=== PATIENT | female | born 1950 | race Caucasian/White ===

== ENCOUNTER 2020-09-30 08:47 | Emergency (ER) | payer OTHER ==
[~2020-09-30] VITALS: Ht 160 cm; Wt 54.4 kg
[2020-09-30 09:45] LABS: BASOPHILS % 0.2 % (0.0-1.0); EOSINOPHILS % 0.1 % (0.0-6.0); HEMATOCRIT 28.1 % (34.2-44.1); HEMOGLOBIN 9.4 g/dL (12.0-16.0); LYMPHOCYTES # (AUTO) 0.3 (1.0-3.2); LYMPHOCYTES % 3.4 % (18.0-39.1); MEAN CORPUSCULAR HEMOGLOBIN 30.8 pg (28-32); MEAN CORPUSCULAR HGB CONC 33.5 g/dL (31-35); MEAN CORPUSCULAR VOLUME 92.1 fL (81-99); MONOCYTES % 10.3 % (4.4-11.3); NEUTROPHILS # (AUTO) 8.5 (2.1-6.9); NEUTROPHILS % 85.3 % (38.7-80.0); PLATELET COUNT 265 x10e3/uL (140-360); RED BLOOD COUNT 3.05 x10e6/uL (3.6-5.1); RED CELL DISTRIBUTION WIDTH 13.5 % (11.7-14.4)
[2020-09-30 10:08] LABS: ALBUMIN 3.3 g/dL (3.5-5.0); ANION GAP 16.2 mmol/L (8-16); CALCIUM 8.4 mg/dL (8.4-10.2); CREATININE, SERUM 1.45 mg/dL (0.57-1.11); POTASSIUM 3.2 mmol/L (3.5-5.1)
[2020-09-30] MEDS ORDERED: SODIUM CHLORIDE 0.9% 1000ML 1,000 ML IV SCH (10:30)
[2020-09-30] MEDS ORDERED: IOPAMIDOL 370 MG/ML 200 ML INFUS..BTL INJ ONE (10:35)
[2020-09-30] MEDS ORDERED: SODIUM CHLORIDE 0.9% 50ML 50 ML ONE (10:35)
[2020-09-30] MEDS ORDERED: CEFTRIAXONE SOD 1 GM/50 ML BAG IV ONE (12:00)
[2020-09-30] MEDS ORDERED: AUGMENTIN 875-1 EACH PO (12:12)
[2020-09-30] MEDS ORDERED: DOXYCYCLINE HY100 MG PO (12:12)
[2020-09-30] MEDS ORDERED: CEFTRIAXONE SOD 1 GM in SODIUM CHLORIDE 0.9% 50ML 50 ML IV ONE (12:15)
[2020-09-30 12:51] VITALS: BP 101/52
== END 2020-09-30 12:40 | disposition home or self-care (01) ==
LOC: EDSEX 08:47 → ER 09:08
DX: R06.02 Shortness of breath (principal); R05 Cough; J18.9 Pneumonia, unspecified organism; R11.0 Nausea; R73.9 Hyperglycemia, unspecified; R94.31 Abnormal electrocardiogram [ECG] [EKG]; E78.5 Hyperlipidemia, unspecified; J44.9 Chronic obstructive pulmonary disease, unspecified; Z20.822 Contact with and (suspected) exposure to COVID-19; Z95.1 Presence of aortocoronary bypass graft; Z99.81 Dependence on supplemental oxygen; F17.210 Nicotine dependence, cigarettes, uncomplicated
CPT/HCPCS: 36415; 71045; 71260; 80053; 83880; 84484; 85025; 85379; 93005; 99284; J0696; J7030; Q9967; U0002

== ENCOUNTER 2020-11-21 17:23 | Inpatient (IN) | payer MEDICARE, OTHER ==
[~2020-11-21] VITALS: Ht 160 cm; Wt 58.5 kg
[~2020-11-21 17:23] MED LIST: AUGMENTIN 875-1 EACH PO; DOXYCYCLINE HY100 MG PO
[2020-11-21 18:18] LABS: BASOPHILS % 0.5 % (0.0-1.0); EOSINOPHILS # (AUTO) 0.1 (0.0-0.4); EOSINOPHILS % 1.2 % (0.0-6.0); HEMATOCRIT 24.6 % (34.2-44.1); HEMOGLOBIN 7.8 g/dL (12.0-16.0); LYMPHOCYTES # (AUTO) 0.6 (1.0-3.2); LYMPHOCYTES % 9.5 % (18.0-39.1); MEAN CORPUSCULAR HEMOGLOBIN 27.9 pg (28-32); MEAN CORPUSCULAR HGB CONC 31.7 g/dL (31-35); MEAN CORPUSCULAR VOLUME 87.9 fL (81-99); MONOCYTES # (AUTO) 0.7 (0.2-0.8); MONOCYTES % 10.1 % (4.4-11.3); NEUTROPHILS # (AUTO) 5.2 (2.1-6.9); NEUTROPHILS % 78.2 % (38.7-80.0); PLATELET COUNT 371 x10e3/uL (140-360); RED CELL DISTRIBUTION WIDTH 16.4 % (11.7-14.4)
[2020-11-21 18:29] LABS: CLARITY,URINE CLEAR (CLEAR); COLOR,URINE YELLOW (YELLOW); LEUKOCYTE ESTERASE ,URINE NEGATIVE (NEGATIVE); NITRITE,URINE NEGATIVE (NEGATIVE)
[2020-11-21 18:30] LABS: BACTERIA,URINE FEW /HPF; EPITHELIAL CELLS,URINE FEW /LPF; KETONES,URINE NEGATIVE (NEGATIVE); PROTEIN,URINE DIPSTICK NEGATIVE (NEGATIVE); RBC,URINE 0-5 /HPF (0-5); URINE UROBILINOGEN 0.2 mg/dL (0.2 - 1); WBC,URINE (MAN) 0-5 /HPF (0-5)
[2020-11-21 18:37] LABS: INR 0.86; PROTHROMBIN TIME 12.3 seconds (11.9-14.5)
[2020-11-21 18:38] LABS: PARTIAL THROMBOPLASTIN TIME 29.1 seconds (23.8-35.5)
[2020-11-21 18:48] LABS: ALBUMIN 3.7 g/dL (3.5-5.0); ALBUMIN/GLOBULIN RATIO 1.1 (0.8-2.0); ANION GAP 16.3 mmol/L (8-16); CALCIUM 10.1 mg/dL (8.4-10.2); CREATININE, SERUM 1.45 mg/dL (0.57-1.11); POTASSIUM 3.3 mmol/L (3.5-5.1)
[2020-11-21 18:55] LABS: CREATINE KINASE MB 2.3 ng/mL (0-5.0)
[2020-11-21] MEDS: MORPHINE SULFATE INJ 4 MG/ML INJ 1ML IV PRN (23:00)
[2020-11-21] MEDS: ONDANSETRON HCL INJ 2MG/ML 2ML 2 MG/ML VIAL IV PRN (23:00)
[2020-11-22 03:12] LABS: FERRITIN 23.6 ng/mL (4.63-204.00)
[2020-11-22 05:34] LABS: BASOPHILS % 0.7 % (0.0-1.0); EOSINOPHILS # (AUTO) 0.1 (0.0-0.4); EOSINOPHILS % 3.2 % (0.0-6.0); LYMPHOCYTES # (AUTO) 0.9 (1.0-3.2); MEAN CORPUSCULAR HEMOGLOBIN 27.7 pg (28-32); MEAN CORPUSCULAR HGB CONC 31.4 g/dL (31-35); MEAN CORPUSCULAR VOLUME 88.4 fL (81-99); MONOCYTES # (AUTO) 0.5 (0.2-0.8); MONOCYTES % 11.2 % (4.4-11.3); NEUTROPHILS # (AUTO) 2.8 (2.1-6.9); NEUTROPHILS % 64.7 % (38.7-80.0); PLATELET COUNT 311 x10e3/uL (140-360); RED BLOOD COUNT 2.49 x10e6/uL (3.6-5.1); RED CELL DISTRIBUTION WIDTH 16.4 % (11.7-14.4)
[2020-11-22 05:42] LABS: HEMOGLOBIN 6.9 g/dL (12.0-16.0)
[2020-11-22] MEDS: ONDANSETRON HCL INJ 2MG/ML 2ML 2 MG/ML VIAL IV PRN ×4 (05:45→20:53)
[2020-11-22] MEDS: MORPHINE SULFATE INJ 4 MG/ML INJ 1ML IV PRN ×4 (05:45→20:53)
[2020-11-22 05:58] LABS: ALBUMIN 3.2 g/dL (3.5-5.0); ALBUMIN/GLOBULIN RATIO 1.2 (0.8-2.0); ANION GAP 14.2 mmol/L (8-16); CALCIUM 9.7 mg/dL (8.4-10.2); CREATININE, SERUM 1.28 mg/dL (0.57-1.11); POTASSIUM 3.2 mmol/L (3.5-5.1)
[2020-11-22] MEDS ORDERED: SODIUM CHLORIDE 0.9% 250ML 250 ML IV ONE (06:30)
[2020-11-22] MEDS: ALBUTEROL/IPRATROPIUM 3 ML NEB NEB SCH ×5 (07:10→23:00)
[2020-11-22 07:30] VITALS: BP 92/51
[2020-11-22 07:51] VITALS: BP 92/57
[2020-11-22] MEDS ORDERED: METOPROLOL TART50 MG PO (08:22)
[2020-11-22] MEDS ORDERED: LEVOTHYROXINE88 MCG PO (08:22)
[2020-11-22] MEDS ORDERED: NITROGLYCERIN0.4 MG (08:22)
[2020-11-22] MEDS ORDERED: FUROSEMIDE20 MG PO (08:22)
[2020-11-22] MEDS ORDERED: PROAIR RESPICL90 MCG INH (08:22)
[2020-11-22] MEDS ORDERED: TRAZODONE HCL50 MG PO (08:22)
[2020-11-22] MEDS ORDERED: VALSARTAN160 MG PO (08:22)
[2020-11-22] MEDS ORDERED: ALBUTEROL2.5 MG/3 M INH (08:22)
[2020-11-22] MEDS ORDERED: PANTOPRAZOLE SO40 MG PO (08:22)
[2020-11-22] MEDS ORDERED: CILOSTAZOL50 MG PO (08:22)
[2020-11-22] MEDS ORDERED: TRELEGY ELLIPT1 EACH INH (08:22)
[2020-11-22] MEDS ORDERED: ASPIRIN81 MG PO (08:22)
[2020-11-22] MEDS ORDERED: CLOPIDOGREL75 MG PO (08:22)
[2020-11-22] MEDS ORDERED: SIMVASTATIN40 MG PO (08:22)
[2020-11-22] MEDS ORDERED: AMLODIPINE BES2.5 MG PO (08:22)
[2020-11-22] MEDS ORDERED: albu (08:22)
[2020-11-22] MEDS ORDERED: CEFDINIR300 MG PO (08:23)
[2020-11-22] MEDS ORDERED: SODIUM CHLORIDE 0.9% 250ML 250 ML ONE ×2 (11:32→18:12)
[2020-11-22 11:57] VITALS: BP 104/53
[2020-11-22] MEDS ORDERED: CYANOCOBALAMIN INJ 1,000 MCG/ML VIAL IM ONE (12:00)
[2020-11-22] MEDS: IRON SUCROSE 100 MG in SODIUM CHLORIDE 0.9% 100 ML 100 ML IV SCH (14:49)
[2020-11-22] MEDS ORDERED: TRAZODONE HCL 50 MG TAB PO PRN (15:45)
[2020-11-22 16:00] VITALS: BP 116/66
[2020-11-22] MEDS ORDERED: POTASSIUM CHLORIDE 10MEQ EA PO ONE (16:30)
[2020-11-22] MEDS: METOPROLOL TARTRATE 50 MG TAB PO SCH (17:00)
[2020-11-22] MEDS: CILOSTAZOL 100 MG TAB PO SCH (19:13)
[2020-11-22 20:00] VITALS: BP 104/62
[2020-11-22 20:46] VITALS: BP 104/62
[2020-11-22] MEDS: SIMVASTATIN 40 MG TAB PO SCH (20:53)
[2020-11-23] VITALS (7 sets, daily range): BP systolic 90–112; BP diastolic 58–75
[2020-11-23] MEDS: ALBUTEROL/IPRATROPIUM 3 ML NEB NEB SCH ×7 (03:00→22:30)
[2020-11-23] MEDS: LEVOTHYROXINE SODIUM 88 MCG TAB PO SCH (05:28)
[2020-11-23] MEDS: MORPHINE SULFATE INJ 4 MG/ML INJ 1ML IV PRN ×2 (05:41→10:50)
[2020-11-23] MEDS: ONDANSETRON HCL INJ 2MG/ML 2ML 2 MG/ML VIAL IV PRN ×2 (05:41→10:50)
[2020-11-23] MEDS ORDERED: LEVOTHYROXINE SODIUM 88 MCG TAB PO SCH (06:00)
[2020-11-23 06:44] LABS: BASOPHILS % 0.5 % (0.0-1.0); EOSINOPHILS # (AUTO) 0.1 (0.0-0.4); EOSINOPHILS % 1.9 % (0.0-6.0); HEMATOCRIT 28.6 % (34.2-44.1); HEMOGLOBIN 9.2 g/dL (12.0-16.0); LYMPHOCYTES # (AUTO) 0.5 (1.0-3.2); LYMPHOCYTES % 6.5 % (18.0-39.1); MEAN CORPUSCULAR HEMOGLOBIN 29.2 pg (28-32); MEAN CORPUSCULAR HGB CONC 32.2 g/dL (31-35); MEAN CORPUSCULAR VOLUME 90.8 fL (81-99); MONOCYTES # (AUTO) 0.6 (0.2-0.8); MONOCYTES % 8.6 % (4.4-11.3); NEUTROPHILS # (AUTO) 6.1 (2.1-6.9); PLATELET COUNT 275 x10e3/uL (140-360); RED BLOOD COUNT 3.15 x10e6/uL (3.6-5.1); RED CELL DISTRIBUTION WIDTH 16.4 % (11.7-14.4)
[2020-11-23 07:12] LABS: ALBUMIN 3.3 g/dL (3.5-5.0); ALBUMIN/GLOBULIN RATIO 1.3 (0.8-2.0); ANION GAP 13.6 mmol/L (8-16); CALCIUM 8.8 mg/dL (8.4-10.2); CREATININE, SERUM 1.28 mg/dL (0.57-1.11); MAGNESIUM 1.5 MG/DL (1.3-2.1); POTASSIUM 3.6 mmol/L (3.5-5.1)
[2020-11-23] MEDS: PANTOPRAZOLE SOD 40 MG TABEC PO SCH (08:49)
[2020-11-23] MEDS: ASPIRIN 81 MG CHEW TAB PO SCH (08:50)
[2020-11-23] MEDS: FUROSEMIDE 20 MG TAB PO SCH (08:50)
[2020-11-23] MEDS: CYANOCOBALAMIN INJ 1,000 MCG/ML VIAL IM SCH (08:50)
[2020-11-23] MEDS: METOPROLOL TARTRATE 50 MG TAB PO SCH ×2 (08:51→16:54)
[2020-11-23] MEDS: CILOSTAZOL 100 MG TAB PO SCH ×2 (08:53→16:54)
[2020-11-23] MEDS ORDERED: CLOPIDOGREL BISULFATE 75 MG TAB PO SCH (09:00)
[2020-11-23] MEDS ORDERED: MORPHINE SULFATE INJ 2 MG/ML SYR ONE (10:48)
[2020-11-23] MEDS: IRON SUCROSE 100 MG in SODIUM CHLORIDE 0.9% 100 ML 100 ML IV SCH (12:33)
[2020-11-23] MEDS ORDERED: PEG (High)/E-LYTE SOLN 4,000 ML BTL PO ONE (14:00)
[2020-11-23] MEDS: SIMVASTATIN 40 MG TAB PO SCH (20:57)
[2020-11-23] MEDS ORDERED: BISACODYL 5 MG TAB EC PO ONE ×2 (22:30→23:00)
[2020-11-23] MEDS: TRAMADOL HCL 50 MG TAB PO PRN (23:39)
[2020-11-24] VITALS (12 sets, daily range): BP systolic 101–131; BP diastolic 74–81
[2020-11-24] MEDS: MORPHINE SULFATE INJ 4 MG/ML INJ 1ML IV PRN ×2 (00:49→20:20)
[2020-11-24] MEDS: ALBUTEROL/IPRATROPIUM 3 ML NEB NEB SCH ×6 (02:30→23:59)
[2020-11-24] MEDS: LEVOTHYROXINE SODIUM 88 MCG TAB PO SCH (05:20)
[2020-11-24] MEDS: ASPIRIN 81 MG CHEW TAB PO SCH (09:00)
[2020-11-24] MEDS: FUROSEMIDE 20 MG TAB PO SCH (09:00)
[2020-11-24] MEDS: CYANOCOBALAMIN INJ 1,000 MCG/ML VIAL IM SCH (09:00)
[2020-11-24] MEDS: CILOSTAZOL 100 MG TAB PO SCH ×2 (09:23→16:46)
[2020-11-24] MEDS: METOPROLOL TARTRATE 50 MG TAB PO SCH ×2 (09:23→16:45)
[2020-11-24] MEDS: PANTOPRAZOLE SOD 40 MG TABEC PO SCH (09:25)
[2020-11-24] MEDS ORDERED: BISACODYL 5 MG TAB EC PO ONE (09:30)
[2020-11-24] MEDS: IRON SUCROSE 100 MG in SODIUM CHLORIDE 0.9% 100 ML 100 ML IV SCH (12:37)
[2020-11-24] MEDS ORDERED: GLUCAGON FOR INJ 1 MG VIAL ONE (12:57)
[2020-11-24] MEDS ORDERED: PROPOFOL IV EMULSION 10 MG/ML 20 ML VIAL ONE (12:57)
[2020-11-24] MEDS ORDERED: MIDAZOLAM HCL 2 MG/2 ML VIAL ONE (13:08)
[2020-11-24] MEDS ORDERED: SIMETHICONE 40 MG/0.6 ML BTL ONE (18:24)
[2020-11-24] MEDS: SIMVASTATIN 40 MG TAB PO SCH (20:27)
[2020-11-24] MEDS: ONDANSETRON HCL INJ 2MG/ML 2ML 2 MG/ML VIAL IV PRN (20:27)
[2020-11-25] VITALS (9 sets, daily range): BP systolic 90–145; BP diastolic 52–80
[2020-11-25] MEDS: MORPHINE SULFATE INJ 4 MG/ML INJ 1ML IV PRN ×3 (01:12→21:36)
[2020-11-25] MEDS ORDERED: METOPROLOL TARTRATE INJ 1 MG/ML VIAL ONE (03:44)
[2020-11-25] MEDS ORDERED: METOPROLOL TARTRATE INJ 1 MG/ML VIAL IV PRN (03:45)
[2020-11-25] MEDS: ALBUTEROL/IPRATROPIUM 3 ML NEB NEB SCH ×6 (04:00→22:43)
[2020-11-25 05:20] LABS: BASOPHILS % 0.3 % (0.0-1.0); EOSINOPHILS # (AUTO) 0.2 (0.0-0.4); EOSINOPHILS % 3.5 % (0.0-6.0); HEMATOCRIT 27.8 % (34.2-44.1); HEMOGLOBIN 9.3 g/dL (12.0-16.0); LYMPHOCYTES # (AUTO) 0.4 (1.0-3.2); LYMPHOCYTES % 6.2 % (18.0-39.1); MEAN CORPUSCULAR HEMOGLOBIN 29.3 pg (28-32); MEAN CORPUSCULAR HGB CONC 33.5 g/dL (31-35); MEAN CORPUSCULAR VOLUME 87.7 fL (81-99); MONOCYTES # (AUTO) 0.7 (0.2-0.8); MONOCYTES % 11.3 % (4.4-11.3); NEUTROPHILS # (AUTO) 4.7 (2.1-6.9); NEUTROPHILS % 78.4 % (38.7-80.0); PLATELET COUNT 250 x10e3/uL (140-360); RED BLOOD COUNT 3.17 x10e6/uL (3.6-5.1); RED CELL DISTRIBUTION WIDTH 15.9 % (11.7-14.4)
[2020-11-25 05:32] LABS: ANION GAP 17.7 mmol/L (8-16); CALCIUM 8.4 mg/dL (8.4-10.2); CREATININE, SERUM 0.93 mg/dL (0.57-1.11)
[2020-11-25 05:55] LABS: POTASSIUM 2.7 mmol/L (3.5-5.1)
[2020-11-25] MEDS: LEVOTHYROXINE SODIUM 88 MCG TAB PO SCH (06:50)
[2020-11-25] MEDS ORDERED: POTASSIUM CHLORIDE 20MEQ/100ML 200 ML IV ONE (07:00)
[2020-11-25] MEDS ORDERED: KCL 20 MEQ PACKET/ ORAL SOLN NG ONE (07:25)
[2020-11-25] MEDS: PANTOPRAZOLE SOD 40 MG TABEC PO SCH (07:58)
[2020-11-25] MEDS: CYANOCOBALAMIN INJ 1,000 MCG/ML VIAL IM SCH (08:01)
[2020-11-25] MEDS: FUROSEMIDE 20 MG TAB PO SCH (08:01)
[2020-11-25] MEDS: CILOSTAZOL 100 MG TAB PO SCH ×2 (08:01→16:19)
[2020-11-25] MEDS: METOPROLOL TARTRATE 50 MG TAB PO SCH ×2 (08:01→16:19)
[2020-11-25] MEDS: ASPIRIN 81 MG CHEW TAB PO SCH (08:01)
[2020-11-25] MEDS ORDERED: SODIUM CHLORIDE 0.9% 250ML 250 ML ONE ×2 (08:18→13:28)
[2020-11-25] MEDS: IRON SUCROSE 100 MG in SODIUM CHLORIDE 0.9% 100 ML 100 ML IV SCH (12:31)
[2020-11-25] MEDS: TRAMADOL HCL 50 MG TAB PO PRN (12:32)
[2020-11-25] MEDS: SIMVASTATIN 40 MG TAB PO SCH (21:19)
[2020-11-26 00:06] VITALS: BP 96/69
[2020-11-26] MEDS: TRAMADOL HCL 50 MG TAB PO PRN ×2 (01:31→15:17)
[2020-11-26] MEDS: ALBUTEROL/IPRATROPIUM 3 ML NEB NEB SCH ×4 (02:18→15:30)
[2020-11-26] MEDS: MORPHINE SULFATE INJ 4 MG/ML INJ 1ML IV PRN ×3 (03:03→17:20)
[2020-11-26 03:54] VITALS: BP 93/73
[2020-11-26 04:52] LABS: BASOPHILS % 0.4 % (0.0-1.0); EOSINOPHILS # (AUTO) 0.2 (0.0-0.4); EOSINOPHILS % 3.4 % (0.0-6.0); HEMOGLOBIN 8.5 g/dL (12.0-16.0); LYMPHOCYTES # (AUTO) 0.2 (1.0-3.2); LYMPHOCYTES % 3.2 % (18.0-39.1); MEAN CORPUSCULAR HEMOGLOBIN 29.5 pg (28-32); MEAN CORPUSCULAR HGB CONC 32.7 g/dL (31-35); MEAN CORPUSCULAR VOLUME 90.3 fL (81-99); MONOCYTES # (AUTO) 0.9 (0.2-0.8); MONOCYTES % 12.6 % (4.4-11.3); NEUTROPHILS # (AUTO) 5.7 (2.1-6.9); NEUTROPHILS % 80.1 % (38.7-80.0); PLATELET COUNT 275 x10e3/uL (140-360); RED BLOOD COUNT 2.88 x10e6/uL (3.6-5.1); RED CELL DISTRIBUTION WIDTH 16.7 % (11.7-14.4)
[2020-11-26 05:12] LABS: ANION GAP 13.6 mmol/L (8-16); CALCIUM 8.4 mg/dL (8.4-10.2); CREATININE, SERUM 1.05 mg/dL (0.57-1.11); POTASSIUM 3.6 mmol/L (3.5-5.1)
[2020-11-26] MEDS: LEVOTHYROXINE SODIUM 88 MCG TAB PO SCH (05:41)
[2020-11-26] MEDS: PANTOPRAZOLE SOD 40 MG TABEC PO SCH (07:30)
[2020-11-26 08:07] VITALS: BP 95/70
[2020-11-26] MEDS: ASPIRIN 81 MG CHEW TAB PO SCH (09:00)
[2020-11-26] MEDS: CILOSTAZOL 100 MG TAB PO SCH ×2 (09:00→17:00)
[2020-11-26] MEDS: CYANOCOBALAMIN INJ 1,000 MCG/ML VIAL IM SCH (09:00)
[2020-11-26] MEDS: METOPROLOL TARTRATE 50 MG TAB PO SCH ×2 (09:00→17:00)
[2020-11-26] MEDS: FUROSEMIDE 20 MG TAB PO SCH (09:00)
[2020-11-26] MEDS: ONDANSETRON HCL INJ 2MG/ML 2ML 2 MG/ML VIAL IV PRN ×2 (10:25→17:20)
[2020-11-26 10:26] LABS: ANISOCYTOSIS SLIGHT; EOSINOPHILS % (MANUAL) 3 % (0-7); LYMPHOCYTES % (MANUAL) 5 % (19-48); MONOCYTES % (MANUAL) 7 % (3.4-9.0); NEUTROPHILS % (MANUAL) 85 % (40-74); PLATELET ESTIMATE ADEQUATE; PLATELET MORPHOLOGY COMMENT NORMAL
[2020-11-26 10:27] LABS: RBC MORPHOLOGY COMMENT NORMAL
[2020-11-26 10:51] VITALS: BP 99/77
[2020-11-26 12:13] VITALS: BP 99/72
[2020-11-26] MEDS: IRON SUCROSE 100 MG in SODIUM CHLORIDE 0.9% 100 ML 100 ML IV SCH (13:30)
[2020-11-26 16:06] LABS: HEMATOCRIT 27.3 % (34.2-44.1); HEMOGLOBIN 8.6 g/dL (12.0-16.0)
== END 2020-11-26 18:46 | disposition home or self-care (01) | DRG 378 ==
LOC: ER 17:35 → ERHOLD 20:38 → MED/SURG 11-22 07:33
PROVIDERS: ADMIT Family Medicine; ATTEND Family Medicine
PROC: 30233N1 Transfusion of Nonautologous Red Blood Cells into Peripheral Vein, Percutaneous Approach (ICD-10-PCS; 2020-11-22)
PROC: 0DB68ZX Excision of Stomach, Via Natural or Artificial Opening Endoscopic, Diagnostic (ICD-10-PCS; 2020-11-24)
PROC: 0DBM8ZX Excision of Descending Colon, Via Natural or Artificial Opening Endoscopic, Diagnostic (ICD-10-PCS; principal; 2020-11-24 17:58)
PROC: 0DBN8ZX Excision of Sigmoid Colon, Via Natural or Artificial Opening Endoscopic, Diagnostic (ICD-10-PCS; 2020-11-24 17:58)
PROC: 0DBP8ZX Excision of Rectum, Via Natural or Artificial Opening Endoscopic, Diagnostic (ICD-10-PCS; 2020-11-24 17:58)
PROC: 0D598ZZ Destruction of Duodenum, Via Natural or Artificial Opening Endoscopic (ICD-10-PCS; 2020-11-24 17:58)
DX: K55.21 Angiodysplasia of colon with hemorrhage (principal); D62 Acute posthemorrhagic anemia; E87.6 Hypokalemia; I73.9 Peripheral vascular disease, unspecified; E78.5 Hyperlipidemia, unspecified; J44.9 Chronic obstructive pulmonary disease, unspecified; I25.10 Atherosclerotic heart disease of native coronary artery without angina pectoris; I12.9 Hypertensive chronic kidney disease with stage 1 through stage 4 chronic kidney disease, or unspecified chronic kidney disease; N18.30 Chronic kidney disease, stage 3 unspecified; K29.70 Gastritis, unspecified, without bleeding; K44.9 Diaphragmatic hernia without obstruction or gangrene; K63.5 Polyp of colon; K62.1 Rectal polyp; Z95.1 Presence of aortocoronary bypass graft; Z88.5 Allergy status to narcotic agent; D50.9 Iron deficiency anemia, unspecified; Z82.49 Family history of ischemic heart disease and other diseases of the circulatory system; G89.29 Other chronic pain; D50.0 Iron deficiency anemia secondary to blood loss (chronic)
CPT/HCPCS: 36415; 43239; 43255; 45384; 45385; 71045; 80048; 80053; 81001; 82550; 82553; 82607; 82728; 82746; 83540; 83735; 84466; 84484; 85014; 85018; 85025; 85045; 85610; 85730; 86850; 86900; 86920; 88305; 88312; 93005; 94640; 99284; J1610; J1756; J2250; J2270; J2405; J3420; J3480; J7050; P9016; U0002

== ENCOUNTER 2021-07-21 17:38 | Inpatient (IN) | payer MEDICARE ==
[~2021-07-21] VITALS: Ht 157.5 cm; Wt 49.4 kg
[~2021-07-21 17:38] MED LIST changes: +ALBUTEROL2.5 MG/3 M INH; +AMLODIPINE BES2.5 MG PO; +ASPIRIN81 MG PO; +CEFDINIR300 MG PO; +CILOSTAZOL50 MG PO; +CLOPIDOGREL75 MG PO; +FUROSEMIDE20 MG PO; +LEVOTHYROXINE88 MCG PO; +METOPROLOL TART50 MG PO; +NITROGLYCERIN0.4 MG; +PANTOPRAZOLE SO40 MG PO; +PROAIR RESPICL90 MCG INH; +SIMVASTATIN40 MG PO; +TRAZODONE HCL50 MG PO; +TRELEGY ELLIPT1 EACH INH; +VALSARTAN160 MG PO; +albu
[2021-07-21 18:11] LABS: BASOPHILS % 0.2 % (0.0-1.0); EOSINOPHILS # (AUTO) 0.1 (0.0-0.4); EOSINOPHILS % 1.6 % (0.0-6.0); LYMPHOCYTES # (AUTO) 0.6 (1.0-3.2); LYMPHOCYTES % 12.2 % (18.0-39.1); MEAN CORPUSCULAR HEMOGLOBIN 29.3 pg (28-32); MEAN CORPUSCULAR HGB CONC 29.4 g/dL (31-35); MEAN CORPUSCULAR VOLUME 99.5 fL (81-99); MONOCYTES # (AUTO) 0.3 (0.2-0.8); MONOCYTES % 7.6 % (4.4-11.3); NEUTROPHILS # (AUTO) 3.5 (2.1-6.9); PLATELET COUNT 259 x10e3/uL (140-360); RED BLOOD COUNT 2.22 x10e6/uL (3.6-5.1); RED CELL DISTRIBUTION WIDTH 15.5 % (11.7-14.4)
[2021-07-21 18:12] LABS: HEMATOCRIT 22.1 % (34.2-44.1); HEMOGLOBIN 6.5 g/dL (12.0-16.0)
[2021-07-21 18:31] LABS: INR 0.86; PROTHROMBIN TIME 12.3 seconds (11.9-14.5)
[2021-07-21 18:32] LABS: PARTIAL THROMBOPLASTIN TIME 22.1 seconds (23.8-35.5)
[2021-07-21 18:42] LABS: ALBUMIN 3.2 g/dL (3.5-5.0); ALBUMIN/GLOBULIN RATIO 1.2 (0.8-2.0); ANION GAP 15.9 mmol/L (8-16); CALCIUM 8.9 mg/dL (8.4-10.2); CREATININE, SERUM 1.43 mg/dL (0.57-1.11)
[2021-07-21 18:44] LABS: POTASSIUM 2.9 mmol/L (3.5-5.1)
[2021-07-21] MEDS ORDERED: POTASSIUM CHLORIDE 10MEQ/100ML 200 ML IV STA (19:31)
[2021-07-21] MEDS ORDERED: POTASSIUM CHLORIDE 20 MEQ TAB CR PO STA (19:31)
[2021-07-21] MEDS ORDERED: SODIUM CHLORIDE 0.9% 250ML 250 ML IV ONE (19:45)
[2021-07-21] MEDS ORDERED: ONDANSETRON HCL INJ 2MG/ML 2ML 2 MG/ML VIAL IV PRN (19:45)
[2021-07-21] MEDS ORDERED: SODIUM CHLORIDE FLUSH 10 ML SYR INJ PRN (19:45)
[2021-07-21 20:59] LABS: CLARITY,URINE CLEAR (CLEAR); COLOR,URINE YELLOW (YELLOW); KETONES,URINE NEGATIVE (NEGATIVE); LEUKOCYTE ESTERASE ,URINE SMALL (NEGATIVE); NITRITE,URINE NEGATIVE (NEGATIVE); PROTEIN,URINE DIPSTICK 2+ (NEGATIVE); URINE UROBILINOGEN 0.2 mg/dL (0.2 - 1)
[2021-07-21 21:10] LABS: BACTERIA,URINE MANY /HPF
[2021-07-21] MEDS: CEFTRIAXONE 1 GM in SODIUM CHLORIDE 0.9% 50ML 50 ML IV SCH (21:42)
[2021-07-21 22:00] VITALS: BP 168/79
[2021-07-21] MEDS ORDERED: IPRATROPIU0.2 MG/1 M INH (22:49)
[2021-07-21] MEDS ORDERED: ENTRESTO 24 MG1 EACH PO (22:49)
[2021-07-21] MEDS ORDERED: KLOR-CON 1010 MEQ PO (22:49)
[2021-07-21] MEDS ORDERED: ULTRAM50 MG PO (22:49)
[2021-07-21] MEDS ORDERED: CLOPIDOGREL75 MG PO (22:49)
[2021-07-21] MEDS ORDERED: BUMETANIDE2 MG PO (22:49)
[2021-07-21] MEDS ORDERED: SUCRALFATE1 GM PO (22:49)
[2021-07-21] MEDS ORDERED: CARVEDILOL3.125 MG PO (22:49)
[2021-07-21] MEDS ORDERED: SODIUM CHLORIDE 0.9% 250ML 250 ML ONE (23:13)
[2021-07-21] MEDS: ALBUTEROL/IPRATROPIUM 3 ML NEB NEB SCH (23:22)
[2021-07-22] VITALS (8 sets, daily range): BP systolic 140–179; BP diastolic 73–97
[2021-07-22] MEDS ORDERED: FUROSEMIDE INJ 10 MG/ML 2 ML VIAL IV ONE ×4 (00:15→19:15)
[2021-07-22] MEDS: TRAZODONE HCL 50 MG TAB PO PRN ×2 (00:30→21:12)
[2021-07-22] MEDS ORDERED: SODIUM CHLORIDE 0.9% 250ML 250 ML ONE (02:19)
[2021-07-22] MEDS: ALBUTEROL/IPRATROPIUM 3 ML NEB NEB SCH ×7 (03:20→23:32)
[2021-07-22 07:22] LABS: BASOPHILS % 0.3 % (0.0-1.0); EOSINOPHILS # (AUTO) 0.1 (0.0-0.4); EOSINOPHILS % 1.6 % (0.0-6.0); HEMATOCRIT 29.7 % (34.2-44.1); HEMOGLOBIN 9.1 g/dL (12.0-16.0); LYMPHOCYTES # (AUTO) 0.7 (1.0-3.2); LYMPHOCYTES % 11.3 % (18.0-39.1); MEAN CORPUSCULAR HEMOGLOBIN 28.7 pg (28-32); MEAN CORPUSCULAR HGB CONC 30.6 g/dL (31-35); MEAN CORPUSCULAR VOLUME 93.7 fL (81-99); MONOCYTES # (AUTO) 0.5 (0.2-0.8); MONOCYTES % 7.5 % (4.4-11.3); NEUTROPHILS # (AUTO) 4.8 (2.1-6.9); PLATELET COUNT 252 x10e3/uL (140-360); RED BLOOD COUNT 3.17 x10e6/uL (3.6-5.1); RED CELL DISTRIBUTION WIDTH 16.8 % (11.7-14.4)
[2021-07-22 07:41] LABS: ANION GAP 15.1 mmol/L (8-16); CALCIUM 8.7 mg/dL (8.4-10.2); CREATININE, SERUM 0.94 mg/dL (0.57-1.11); POTASSIUM 3.1 mmol/L (3.5-5.1)
[2021-07-22] MEDS ORDERED: POTASSIUM CHLORIDE 20 MEQ TAB CR PO ONE ×2 (09:00→18:30)
[2021-07-22] MEDS ORDERED: BUSPIRONE HCL5 MG PO (14:42)
[2021-07-22] MEDS ORDERED: TRAMADOL HCL 50 MG TAB PO PRN (17:45)
[2021-07-22] MEDS ORDERED: IPRATROPIUM BROMIDE 0.02% 2.5 ML NEB INH PRN (17:45)
[2021-07-22] MEDS: ALBUTEROL SULF 0.083% NEB SOLN 3 ML NEB INH SCH (21:00)
[2021-07-22] MEDS ORDERED: SIMVASTATIN 40 MG TAB PO SCH (21:00)
[2021-07-22] MEDS: BUSPIRONE HCL 5 MG TAB PO SCH (21:06)
[2021-07-22] MEDS: CEFTRIAXONE 1 GM in SODIUM CHLORIDE 0.9% 50ML 50 ML IV SCH (21:06)
[2021-07-22] MEDS: SUCRALFATE 1 GM TAB PO SCH (21:06)
[2021-07-22 23:17] LABS: % IRON SATURATION 8 % (15-50); IRON 26 ug/dL (50-170); TOTAL IRON BINDING CAPACITY 330 ug/dL (261-478); TRANSFERRIN 236 mg/dL (180-382)
[2021-07-23] MEDS ORDERED: CLONIDINE HCL 0.1 MG TAB PO PRN (01:15)
[2021-07-23 02:52] VITALS: BP 152/91
[2021-07-23] MEDS: ALBUTEROL/IPRATROPIUM 3 ML NEB NEB SCH ×4 (04:01→15:00)
[2021-07-23 04:55] VITALS: BP 177/91
[2021-07-23] MEDS ORDERED: LEVOTHYROXINE SODIUM 88 MCG TAB PO SCH (06:00)
[2021-07-23 06:04] LABS: BASOPHILS % 0.6 % (0.0-1.0); EOSINOPHILS # (AUTO) 0.1 (0.0-0.4); HEMATOCRIT 31.1 % (34.2-44.1); HEMOGLOBIN 9.4 g/dL (12.0-16.0); LYMPHOCYTES # (AUTO) 0.6 (1.0-3.2); LYMPHOCYTES % 10.2 % (18.0-39.1); MEAN CORPUSCULAR HGB CONC 30.2 g/dL (31-35); MONOCYTES # (AUTO) 0.5 (0.2-0.8); MONOCYTES % 8.5 % (4.4-11.3); NEUTROPHILS # (AUTO) 4.2 (2.1-6.9); NEUTROPHILS % 78.1 % (38.7-80.0); PLATELET COUNT 250 x10e3/uL (140-360); RED BLOOD COUNT 3.24 x10e6/uL (3.6-5.1); RED CELL DISTRIBUTION WIDTH 17.1 % (11.7-14.4)
[2021-07-23 06:28] LABS: ALBUMIN 2.9 g/dL (3.5-5.0); ALBUMIN/GLOBULIN RATIO 1.2 (0.8-2.0); ANION GAP 13.6 mmol/L (8-16); CALCIUM 9.1 mg/dL (8.4-10.2); CREATININE, SERUM 1.07 mg/dL (0.57-1.11); POTASSIUM 4.6 mmol/L (3.5-5.1)
[2021-07-23] MEDS ORDERED: BUDESONIDE 0.25 MG/2 ML NEB NEB SCH (07:00)
[2021-07-23] MEDS: SUCRALFATE 1 GM TAB PO SCH ×3 (07:30→16:30)
[2021-07-23 08:30] VITALS: BP 128/62
[2021-07-23] MEDS: CILOSTAZOL 100 MG TAB PO SCH ×2 (09:00→17:00)
[2021-07-23] MEDS: BUSPIRONE HCL 5 MG TAB PO SCH ×2 (09:00→15:00)
[2021-07-23] MEDS ORDERED: ASPIRIN 81 MG CHEW TAB PO SCH (09:00)
[2021-07-23] MEDS ORDERED: POTASSIUM CHLORIDE 10MEQ EA PO SCH (09:00)
[2021-07-23] MEDS ORDERED: CLOPIDOGREL BISULFATE 75 MG TAB PO SCH (09:00)
[2021-07-23] MEDS ORDERED: CYANOCOBALAMIN INJ 1,000 MCG/ML VIAL IM SCH (09:00)
[2021-07-23] MEDS: BUMETANIDE 1 MG TAB PO SCH ×2 (09:00→17:00)
[2021-07-23] MEDS ORDERED: PANTOPRAZOLE SOD 40 MG TABEC PO SCH (09:00)
[2021-07-23] MEDS: CARVEDILOL 3.125 MG TAB PO SCH ×2 (09:00→17:00)
[2021-07-23] MEDS: VALSARTAN/SACUBITRIL 24MG/26MG 1 EA TAB PO SCH ×2 (09:00→17:00)
[2021-07-23] MEDS ORDERED: IRON SUCROSE 100 MG in SODIUM CHLORIDE 0.9% 100 ML 100 ML IV SCH (09:00)
[2021-07-23] MEDS: ALBUTEROL SULF 0.083% NEB SOLN 3 ML NEB INH SCH ×2 (09:00→15:00)
[2021-07-23 12:10] VITALS: BP 150/62
[2021-07-23] MEDS ORDERED: PROPOFOL IV EMULSION 10 MG/ML 20 ML VIAL ONE (12:28)
[2021-07-23] MEDS ORDERED: LIDOCAINE HCL 2% LOCAL INJ 5 ML SDV VIAL INJ ONE (12:28)
[2021-07-23] MEDS ORDERED: GLUCAGON FOR INJ 1 MG VIAL ONE (12:28)
[2021-07-23] MEDS ORDERED: ONDANSETRON HCL 4 MG ORAL DISINTEGRATING TAB PO PRN (14:15)
[2021-07-23 16:47] VITALS: BP 120/64
== END 2021-07-23 19:20 | disposition home or self-care (01) | DRG 378 ==
LOC: ER 17:43 → ERHOLD 19:45 → MED/SURG 21:51 → OBSVTOIN 07-23 11:28
PROVIDERS: ADMIT Family Medicine; ATTEND Family Medicine
PROC: 30233N1 Transfusion of Nonautologous Red Blood Cells into Peripheral Vein, Percutaneous Approach (ICD-10-PCS; 2021-07-21)
PROC: 0D568ZZ Destruction of Stomach, Via Natural or Artificial Opening Endoscopic (ICD-10-PCS; 2021-07-23)
PROC: 0D598ZZ Destruction of Duodenum, Via Natural or Artificial Opening Endoscopic (ICD-10-PCS; principal; 2021-07-23 10:00)
PROC: 0D578ZZ Destruction of Stomach, Pylorus, Via Natural or Artificial Opening Endoscopic (ICD-10-PCS; 2021-07-23 10:00)
DX: K31.811 Angiodysplasia of stomach and duodenum with bleeding (principal); I13.0 Hypertensive heart and chronic kidney disease with heart failure and stage 1 through stage 4 chronic kidney disease, or unspecified chronic kidney disease; D62 Acute posthemorrhagic anemia; N39.0 Urinary tract infection, site not specified; D64.9 Anemia, unspecified; I25.10 Atherosclerotic heart disease of native coronary artery without angina pectoris; E78.5 Hyperlipidemia, unspecified; J44.9 Chronic obstructive pulmonary disease, unspecified; E87.6 Hypokalemia; N18.30 Chronic kidney disease, stage 3 unspecified; I50.9 Heart failure, unspecified; K29.70 Gastritis, unspecified, without bleeding; K44.9 Diaphragmatic hernia without obstruction or gangrene; Z87.891 Personal history of nicotine dependence; Z88.5 Allergy status to narcotic agent; Z95.1 Presence of aortocoronary bypass graft; Z20.822 Contact with and (suspected) exposure to COVID-19; B96.20 Unspecified Escherichia coli [E. coli] as the cause of diseases classified elsewhere
CPT/HCPCS: 36415; 43235; 43270; 80048; 80053; 81001; 82607; 82746; 83540; 84466; 85025; 85045; 85610; 85730; 86850; 86900; 86920; 87086; 87186; 93005; 94640; 94799; 99284; G0378; J0696; J1610; J1756; J1940; J2001; J3420; J3480; J7050; P9016; U0002

== ENCOUNTER 2022-11-30 12:36 | Observation (INO) | payer MEDICARE ==
[~2022-11-30] VITALS: Ht 157.5 cm; Wt 44.5 kg
[2022-11-30] VITALS (7 sets, daily range): BP systolic 130–159; BP diastolic 55–71; PULSE 48–83; RESP 18–22; TEMP 97.7–98.7; O2SAT 97–100
[~2022-11-30 12:36] MED LIST changes: +BUMETANIDE2 MG PO; +BUSPIRONE HCL5 MG PO; +CARVEDILOL3.125 MG PO; +ENTRESTO 24 MG1 EACH PO; +IPRATROPIU0.2 MG/1 M INH; +KLOR-CON 1010 MEQ PO; +SUCRALFATE1 GM PO; +ULTRAM50 MG PO
[2022-11-30] MEDS ORDERED: SODIUM CHLORIDE 0.9% 250ML 250 ML IV ONE (13:00)
[2022-11-30 15:26] LABS: BASOPHILS % 0.2 % (0.0-1.0); EOSINOPHILS # (AUTO) 0.1 (0.0-0.4); EOSINOPHILS % 1.9 % (0.0-6.0); LYMPHOCYTES # (AUTO) 0.6 (1.0-3.2); LYMPHOCYTES % 11.8 % (18.0-39.1); MEAN CORPUSCULAR HEMOGLOBIN 25.1 pg (28-32); MEAN CORPUSCULAR HGB CONC 29.8 g/dL (31-35); MEAN CORPUSCULAR VOLUME 84.3 fL (81-99); MONOCYTES # (AUTO) 0.4 (0.2-0.8); MONOCYTES % 7.2 % (4.4-11.3); NEUTROPHILS # (AUTO) 3.8 (2.1-6.9); NEUTROPHILS % 78.7 % (38.7-80.0); PLATELET COUNT 291 x10e3/uL (140-360); RED BLOOD COUNT 2.67 x10e6/uL (3.6-5.1); RED CELL DISTRIBUTION WIDTH 16.7 % (11.7-14.4)
[2022-11-30 15:30] LABS: HEMATOCRIT 22.5 % (34.2-44.1); HEMOGLOBIN 6.7 g/dL (12.0-16.0)
[2022-11-30] MEDS ORDERED: SODIUM CHLORIDE 0.9% 250ML 250 ML ONE (16:44)
[2022-11-30] MEDS ORDERED: TRAMADOL HCL 50 MG TAB PO PRN (18:00)
[2022-11-30] MEDS ORDERED: TRAZODONE HCL 50 MG TAB PO PRN (18:00)
[2022-11-30] MEDS: IPRATROPIUM BROMIDE 0.02% 2.5 ML NEB INH PRN (19:50)
[2022-11-30] MEDS: ALBUTEROL SULF 0.083% NEB SOLN 3 ML NEB INH SCH (19:50)
[2022-11-30] MEDS: BUSPIRONE HCL 5 MG TAB PO SCH (20:49)
[2022-11-30] MEDS: SUCRALFATE 1 GM TAB PO SCH (20:50)
[2022-11-30] MEDS ORDERED: SIMVASTATIN 40 MG TAB PO SCH (21:00)
[2022-11-30] MEDS: FUROSEMIDE INJ 10 MG/ML 2 ML VIAL IV PRN (21:36)
[2022-12-01 00:37] VITALS: BP 139/67; PULSE 88; RESP 22; TEMP 98.2; O2SAT 100
[2022-12-01] MEDS: FUROSEMIDE INJ 10 MG/ML 2 ML VIAL IV PRN (01:52)
[2022-12-01 04:27] VITALS: BP 157/52; PULSE 53; RESP 20; TEMP 98.3; O2SAT 100
[2022-12-01] MEDS ORDERED: LEVOTHYROXINE SODIUM 88 MCG TAB PO SCH (06:00)
[2022-12-01] MEDS: ALBUTEROL SULF 0.083% NEB SOLN 3 ML NEB INH SCH ×2 (07:00→08:11)
[2022-12-01] MEDS: SUCRALFATE 1 GM TAB PO SCH ×2 (07:41→12:13)
[2022-12-01 08:00] VITALS: BP 157/52; PULSE 53; RESP 20; TEMP 98.3; O2SAT 100
[2022-12-01 08:05] VITALS: BP 166/85; PULSE 92; RESP 18; TEMP 98.2; O2SAT 99
[2022-12-01 08:07] VITALS: PULSE 90; RESP 16; O2SAT 96
[2022-12-01 08:08] LABS: BASOPHILS % 0.5 % (0.0-1.0); EOSINOPHILS # (AUTO) 0.1 (0.0-0.4); EOSINOPHILS % 2.3 % (0.0-6.0); HEMATOCRIT 32.2 % (34.2-44.1); HEMOGLOBIN 10.5 g/dL (12.0-16.0); LYMPHOCYTES # (AUTO) 0.6 (1.0-3.2); LYMPHOCYTES % 9.9 % (18.0-39.1); MEAN CORPUSCULAR HEMOGLOBIN 26.9 pg (28-32); MEAN CORPUSCULAR HGB CONC 32.6 g/dL (31-35); MEAN CORPUSCULAR VOLUME 82.4 fL (81-99); MONOCYTES # (AUTO) 0.6 (0.2-0.8); MONOCYTES % 9.9 % (4.4-11.3); NEUTROPHILS # (AUTO) 4.4 (2.1-6.9); NEUTROPHILS % 77.1 % (38.7-80.0); PLATELET COUNT 300 x10e3/uL (140-360); RED BLOOD COUNT 3.91 x10e6/uL (3.6-5.1); RED CELL DISTRIBUTION WIDTH 15.8 % (11.7-14.4)
[2022-12-01] MEDS: IPRATROPIUM BROMIDE 0.02% 2.5 ML NEB INH PRN (08:10)
[2022-12-01 08:29] LABS: ANION GAP 13.3 mmol/L (8-16); CALCIUM 9.4 mg/dL (8.4-10.2); CREATININE, SERUM 1.06 mg/dL (0.57-1.11); POTASSIUM 3.3 mmol/L (3.5-5.1)
[2022-12-01] MEDS ORDERED: CILOSTAZOL 100 MG TAB PO SCH (09:00)
[2022-12-01] MEDS ORDERED: BUMETANIDE 1 MG TAB PO SCH (09:00)
[2022-12-01] MEDS ORDERED: CARVEDILOL 3.125 MG TAB PO SCH (09:00)
[2022-12-01] MEDS ORDERED: PANTOPRAZOLE SOD 40 MG TABEC PO SCH (09:00)
[2022-12-01] MEDS ORDERED: CLOPIDOGREL BISULFATE 75 MG TAB PO SCH (09:00)
[2022-12-01] MEDS ORDERED: ASPIRIN 81 MG CHEW TAB PO SCH (09:00)
[2022-12-01] MEDS: BUSPIRONE HCL 5 MG TAB PO SCH (10:44)
[2022-12-01] MEDS ORDERED: POTASSIUM CHLORIDE 20 MEQ TAB CR PO ONE (11:15)
[2022-12-01 11:22] VITALS: BP 164/55; PULSE 86; RESP 18; TEMP 98.4; O2SAT 95
== END 2022-12-01 13:01 | disposition home or self-care (01) ==
LOC: MED/SURG2 12:38
PROVIDERS: ADMIT Family Medicine; ATTEND Family Medicine
DX: D50.0 Iron deficiency anemia secondary to blood loss (chronic) (principal); I11.0 Hypertensive heart disease with heart failure; I50.9 Heart failure, unspecified; E78.5 Hyperlipidemia, unspecified; I25.10 Atherosclerotic heart disease of native coronary artery without angina pectoris; J44.9 Chronic obstructive pulmonary disease, unspecified; I73.9 Peripheral vascular disease, unspecified; Z89.519 Acquired absence of unspecified leg below knee; Z20.822 Contact with and (suspected) exposure to COVID-19; Z79.02 Long term (current) use of antithrombotics/antiplatelets; Z79.82 Long term (current) use of aspirin; Z79.899 Other long term (current) drug therapy
CPT/HCPCS: 36415 ×2; 36430; 80048; 85025 ×2; 86850; 86900; 86920; 94640; 94799 ×2; G0378 ×2; J1940 ×2; J7050; P9016; S0164; U0002

== ENCOUNTER 2023-04-18 17:31 | Observation (INO) | payer MEDICARE ==
[~2023-04-18] VITALS: Ht 157.5 cm; Wt 44.5 kg
[2023-04-18 17:00] VITALS: BP 148/70; PULSE 80; RESP 15; TEMP 98.2; O2SAT 100
[2023-04-18] MEDS ORDERED: FUROSEMIDE40 MG PO (18:30)
[2023-04-18 18:44] VITALS: BP 148/70; PULSE 80; RESP 20; TEMP 98.2; O2SAT 100
[2023-04-18] MEDS ORDERED: SODIUM CHLORIDE 0.9% 250ML 250 ML IV ONE (18:45)
[2023-04-18 18:50] LABS: BASOPHILS % 0.6 % (0.0-1.0); EOSINOPHILS # (AUTO) 0.2 (0.0-0.4); EOSINOPHILS % 3.1 % (0.0-6.0); LYMPHOCYTES # (AUTO) 0.9 (1.0-3.2); LYMPHOCYTES % 18.2 % (18.0-39.1); MEAN CORPUSCULAR HEMOGLOBIN 27.6 pg (28-32); MEAN CORPUSCULAR HGB CONC 31.6 g/dL (31-35); MEAN CORPUSCULAR VOLUME 87.6 fL (81-99); MONOCYTES # (AUTO) 0.5 (0.2-0.8); MONOCYTES % 10.4 % (4.4-11.3); NEUTROPHILS # (AUTO) 3.3 (2.1-6.9); NEUTROPHILS % 67.5 % (38.7-80.0); PLATELET COUNT 282 x10e3/uL (140-360); RED BLOOD COUNT 2.17 x10e6/uL (3.6-5.1); RED CELL DISTRIBUTION WIDTH 15.6 % (11.7-14.4); WHITE BLOOD COUNT 4.83 x10e3/uL (4.8-10.8)
[2023-04-18 19:44] VITALS: BP 125/76; PULSE 88; RESP 18; TEMP 98.5; O2SAT 100
[2023-04-18 20:01] VITALS: BP 148/70; PULSE 80; RESP 20; TEMP 98.2; O2SAT 100
[2023-04-18] MEDS ORDERED: IPRATROPIUM BROMIDE 0.02% 2.5 ML NEB INH PRN (20:15)
[2023-04-18] MEDS ORDERED: TRAZODONE HCL 50 MG TAB PO PRN (20:15)
[2023-04-18] MEDS ORDERED: TRAMADOL HCL 50 MG TAB PO PRN (20:15)
[2023-04-18] MEDS ORDERED: SIMVASTATIN 40 MG TAB PO SCH (21:00)
[2023-04-18 21:17] VITALS: BP 125/76; PULSE 88; RESP 18; TEMP 98.5; O2SAT 100
[2023-04-18] MEDS: BUSPIRONE HCL 5 MG TAB PO SCH (21:57)
[2023-04-18 22:58] VITALS: PULSE 74; RESP 18; O2SAT 100
[2023-04-18] MEDS: ALBUTEROL SULF 0.083% NEB SOLN 3 ML NEB INH SCH (22:58)
[2023-04-19] VITALS: BP 162/72; PULSE 67; RESP 17; TEMP 98.6; O2SAT 99
[2023-04-19] MEDS: FUROSEMIDE INJ 10 MG/ML 2 ML VIAL IV PRN ×2 (00:09→04:17)
[2023-04-19] MEDS ORDERED: SODIUM CHLORIDE 0.9% 250ML 250 ML IV ONE (00:45)
[2023-04-19 04:13] VITALS: BP 139/83; PULSE 81; RESP 19; TEMP 98.4; O2SAT 100
[2023-04-19] MEDS ORDERED: LEVOTHYROXINE SODIUM 88 MCG TAB PO SCH (06:00)
[2023-04-19 07:21] LABS: BASOPHILS % 0.7 % (0.0-1.0); EOSINOPHILS # (AUTO) 0.2 (0.0-0.4); EOSINOPHILS % 3.5 % (0.0-6.0); HEMATOCRIT 27.9 % (34.2-44.1); HEMOGLOBIN 9.2 g/dL (12.0-16.0); LYMPHOCYTES # (AUTO) 1.1 (1.0-3.2); LYMPHOCYTES % 23.5 % (18.0-39.1); MEAN CORPUSCULAR HEMOGLOBIN 28.1 pg (28-32); MEAN CORPUSCULAR VOLUME 85.3 fL (81-99); MONOCYTES # (AUTO) 0.5 (0.2-0.8); MONOCYTES % 11.1 % (4.4-11.3); NEUTROPHILS # (AUTO) 2.8 (2.1-6.9); PLATELET COUNT 272 x10e3/uL (140-360); RED BLOOD COUNT 3.27 x10e6/uL (3.6-5.1); WHITE BLOOD COUNT 4.51 x10e3/uL (4.8-10.8)
[2023-04-19 07:38] LABS: ANION GAP 12.6 mmol/L (8-16); CREATININE, SERUM 1.15 mg/dL (0.57-1.11); POTASSIUM 3.6 mmol/L (3.5-5.1)
[2023-04-19 07:45] VITALS: PULSE 85; RESP 20; O2SAT 98
[2023-04-19] MEDS: ALBUTEROL SULF 0.083% NEB SOLN 3 ML NEB INH SCH (07:47)
[2023-04-19 08:00] VITALS: BP 149/61; PULSE 80; RESP 15; TEMP 98.1; O2SAT 99
[2023-04-19] MEDS: BUSPIRONE HCL 5 MG TAB PO SCH (08:03)
[2023-04-19] MEDS ORDERED: CLOPIDOGREL BISULFATE 75 MG TAB PO SCH (09:00)
[2023-04-19] MEDS ORDERED: ASPIRIN 81 MG CHEW TAB PO SCH (09:00)
[2023-04-19] MEDS ORDERED: CILOSTAZOL 100 MG TAB PO SCH (09:00)
[2023-04-19] MEDS ORDERED: PANTOPRAZOLE SOD 40 MG TABEC PO SCH (09:00)
[2023-04-19] MEDS ORDERED: FUROSEMIDE 40 MG TAB PO SCH (09:00)
[2023-04-19] MEDS ORDERED: POTASSIUM CHLORIDE 10MEQ EA PO SCH (09:00)
[2023-04-19] MEDS ORDERED: SACUBITRIL/VALSARTAN 24MG/26MG 1 EA TAB PO SCH (09:00)
== END 2023-04-19 08:46 | disposition home or self-care (01) ==
LOC: MED/SURG 17:31
PROVIDERS: ADMIT Family Medicine; ATTEND Family Medicine
DX: D50.0 Iron deficiency anemia secondary to blood loss (chronic) (principal); K55.20 Angiodysplasia of colon without hemorrhage; I11.0 Hypertensive heart disease with heart failure; I50.9 Heart failure, unspecified; E78.5 Hyperlipidemia, unspecified; I73.9 Peripheral vascular disease, unspecified; K21.00 Gastro-esophageal reflux disease with esophagitis, without bleeding; Z87.891 Personal history of nicotine dependence; Z11.52 Encounter for screening for COVID-19; Z89.519 Acquired absence of unspecified leg below knee; Z79.899 Other long term (current) drug therapy; Z79.02 Long term (current) use of antithrombotics/antiplatelets
CPT/HCPCS: 36415 ×2; 36430; 80048; 85025 ×2; 86850; 86900; 86920; 94640 ×2; 94799 ×2; G0378 ×2; J1940; J7050 ×2; P9016 ×2; S0164; U0002

== ENCOUNTER 2024-01-31 19:28 | Observation (INO) | payer MEDICARE ==
[~2024-01-31 19:28] MED LIST changes: +ALBUTEROL1.25 MG/3 NEB; +EZETIMIBE10 MG PO; +FISH OIL 1,2001 EACH PO; +FUROSEMIDE40 MG PO; +LEVOTHYROXINE125 MCG PO; +METOPROLOL SUCC25 MG PO; +SYNTHROID100 MCG PO; +TRELEGY ELLIPT1 EACH PO; +ULTRAM 50MG50 MG PO; +VITAMIN D PO; +[UNRECOGNIZED DRUG - OTHER] PO
[2024-01-31 20:04] VITALS: BP 139/55; PULSE 83; RESP 18; TEMP 97.6; O2SAT 97
[2024-01-31] MEDS ORDERED: SODIUM CHLORIDE 0.9% 250ML 250 ML IV ONE (20:45)
[2024-01-31] MEDS ORDERED: FUROSEMIDE INJ 10 MG/ML 2 ML VIAL IV ONE (20:45)
[2024-01-31 21:00] VITALS: BP 139/55; PULSE 83; RESP 18; TEMP 97.6; O2SAT 97
[2024-01-31 22:14] LABS: BASOPHILS # (AUTO) 0.2 (0.0-0.1); BASOPHILS % 1.6 % (0.0-1.0); EOSINOPHILS % 0.1 % (0.0-6.0); HEMATOCRIT 26.9 % (34.2-44.1); HEMOGLOBIN 8.1 g/dL (12.0-16.0); LYMPHOCYTES # (AUTO) 0.2 (1.0-3.2); LYMPHOCYTES % 2.4 % (18.0-39.1); MEAN CORPUSCULAR HEMOGLOBIN 28.9 pg (28-32); MEAN CORPUSCULAR HGB CONC 30.1 g/dL (31-35); MEAN CORPUSCULAR VOLUME 96.1 fL (81-99); MONOCYTES # (AUTO) 0.9 (0.2-0.8); MONOCYTES % 8.9 % (4.4-11.3); NEUTROPHILS # (AUTO) 8.8 (2.1-6.9); NEUTROPHILS % 86.6 % (38.7-80.0); PLATELET COUNT 320 x10e3/uL (140-360); RED CELL DISTRIBUTION WIDTH 16.8 % (11.7-14.4); WHITE BLOOD COUNT 10.12 x10e3/uL (4.8-10.8)
[2024-01-31 23:53] VITALS: BP 139/55; PULSE 83; RESP 18; TEMP 97.6; O2SAT 97
[2024-02-01] VITALS: BP 147/66; PULSE 85; RESP 18; TEMP 98.6; O2SAT 97
[2024-02-01 04:00] VITALS: BP 136/53; PULSE 75; RESP 18; TEMP 97.7; O2SAT 98
[2024-02-01 07:49] VITALS: BP 117/51; PULSE 71; RESP 17; TEMP 98.5; O2SAT 98
[2024-02-01 09:23] VITALS: BP 117/51; RESP 17; TEMP 98.5; O2SAT 98
[2024-02-01 09:24] VITALS: BP 117/51; PULSE 71; RESP 17; TEMP 98.5; O2SAT 98
== END 2024-02-01 10:22 | disposition home or self-care (01) ==
LOC: MED/SURG3 19:55
PROVIDERS: ADMIT Family Medicine; ATTEND Family Medicine
DX: D50.0 Iron deficiency anemia secondary to blood loss (chronic) (principal); Z11.52 Encounter for screening for COVID-19; Z79.899 Other long term (current) drug therapy
CPT/HCPCS: 36415; 85025; 86850; 86900; 86920; G0378; U0002

== ENCOUNTER 2024-05-04 10:32 | Observation (INO) | payer MEDICARE ==
[2024-05-04] VITALS (8 sets, daily range): BP systolic 112–142; BP diastolic 49–86; PULSE 53–82; RESP 18–20; TEMP 97.7–98.1; O2SAT 96–100
[~2024-05-04] VITALS: Ht 157.5 cm; Wt 45.4 kg
[2024-05-04] MEDS ORDERED: SODIUM CHLORIDE 0.9% 250ML 250 ML IV ONE (11:00)
[2024-05-04] MEDS ORDERED: ONDANSETRON HCL INJ 2MG/ML 2ML 2 MG/ML VIAL IV PRN (11:15)
[2024-05-04 11:38] LABS: BASOPHILS % 0.4 % (0.0-1.0); EOSINOPHILS # (AUTO) 0.2 (0.0-0.4); EOSINOPHILS % 3.7 % (0.0-6.0); LYMPHOCYTES # (AUTO) 0.6 (1.0-3.2); LYMPHOCYTES % 12.3 % (18.0-39.1); MEAN CORPUSCULAR HEMOGLOBIN 27.3 pg (28-32); MEAN CORPUSCULAR HGB CONC 28.7 g/dL (31-35); MEAN CORPUSCULAR VOLUME 95.2 fL (81-99); MONOCYTES # (AUTO) 0.5 (0.2-0.8); NEUTROPHILS # (AUTO) 3.5 (2.1-6.9); NEUTROPHILS % 73.4 % (38.7-80.0); PLATELET COUNT 294 x10e3/uL (140-360); RED BLOOD COUNT 2.27 x10e6/uL (3.6-5.1); RED CELL DISTRIBUTION WIDTH 17.6 % (11.7-14.4); WHITE BLOOD COUNT 4.81 x10e3/uL (4.8-10.8)
[2024-05-04 11:44] LABS: HEMATOCRIT 21.6 % (34.2-44.1)
[2024-05-04 11:45] LABS: HEMOGLOBIN 6.2 g/dL (12.0-16.0)
[2024-05-04 11:47] LABS: PROTHROMBIN TIME 13.7 seconds (11.9-14.5)
[2024-05-04 11:48] LABS: PARTIAL THROMBOPLASTIN TIME 33.4 seconds (23.8-35.5)
[2024-05-04 12:00] LABS: ALBUMIN 3.2 g/dL (3.5-5.0); ANION GAP 14.4 mmol/L (8-16); BILIRUBIN,TOTAL 0.2 mg/dL (0.2-1.2); CALCIUM 9.6 mg/dL (8.4-10.2); CREATININE, SERUM 1.31 mg/dL (0.57-1.11); TOTAL PROTEIN 6.3 g/dL (6.5-8.1)
[2024-05-04 12:12] LABS: POTASSIUM 3.4 mmol/L (3.5-5.1)
[2024-05-04] MEDS ORDERED: SODIUM CHLORIDE 0.9% 250ML 250 ML ONE ×2 (15:50→21:45)
[2024-05-04] MEDS ORDERED: IPRATROPIUM BROMIDE 0.02% 2.5 ML NEB INH PRN (19:15)
[2024-05-04] MEDS: FUROSEMIDE INJ 10 MG/ML 2 ML VIAL IV PRN (19:26)
[2024-05-04] MEDS: ALBUTEROL SULF 0.083% NEB SOLN 3 ML NEB NEB SCH (20:19)
[2024-05-04] MEDS: BUSPIRONE HCL 5 MG TAB PO SCH (21:44)
[2024-05-04] MEDS: SIMVASTATIN 40 MG TAB PO SCH (21:44)
[2024-05-04] MEDS: EZETIMIBE 10 MG TAB PO SCH (21:44)
[2024-05-04] MEDS: SACUBITRIL/VALSARTAN 24MG/26MG 1 EA TAB PO SCH (21:45)
[2024-05-04] MEDS: METOPROLOL SUCCINATE 25 MG TAB XL PO SCH (21:46)
[2024-05-04] MEDS: TRAZODONE HCL 50 MG TAB PO PRN (22:41)
[2024-05-04] MEDS: TRAMADOL HCL 50 MG TAB PO PRN (23:03)
[2024-05-05] VITALS: BP 122/52; PULSE 79; RESP 18; TEMP 97.8; O2SAT 98
[2024-05-05 01:53] VITALS: PULSE 69; RESP 18; O2SAT 100
[2024-05-05 04:00] VITALS: BP 122/62; PULSE 70; RESP 18; TEMP 97.7; O2SAT 97
[2024-05-05 05:47] LABS: BASOPHILS % 0.2 % (0.0-1.0); EOSINOPHILS # (AUTO) 0.2 (0.0-0.4); EOSINOPHILS % 5.3 % (0.0-6.0); HEMATOCRIT 30.3 % (34.2-44.1); HEMOGLOBIN 8.9 g/dL (12.0-16.0); LYMPHOCYTES # (AUTO) 0.8 (1.0-3.2); LYMPHOCYTES % 17.1 % (18.0-39.1); MEAN CORPUSCULAR HEMOGLOBIN 27.8 pg (28-32); MEAN CORPUSCULAR HGB CONC 29.4 g/dL (31-35); MEAN CORPUSCULAR VOLUME 94.7 fL (81-99); MONOCYTES # (AUTO) 0.5 (0.2-0.8); MONOCYTES % 11.1 % (4.4-11.3); NEUTROPHILS % 66.1 % (38.7-80.0); PLATELET COUNT 280 x10e3/uL (140-360); RED CELL DISTRIBUTION WIDTH 16.6 % (11.7-14.4)
[2024-05-05] MEDS: LEVOTHYROXINE SODIUM 100 MCG TAB PO SCH (05:48)
[2024-05-05 06:10] VITALS: PULSE 82; RESP 22; O2SAT 97
[2024-05-05 08:00] VITALS: BP 104/62; PULSE 69; RESP 18; TEMP 97.6; O2SAT 100
[2024-05-05 08:30] VITALS: BP 104/62; PULSE 69; RESP 18; TEMP 97.6; O2SAT 100
[2024-05-05] MEDS ORDERED: FLUTICASONE INH SCH (09:00)
[2024-05-05] MEDS ORDERED: PANTOPRAZOLE SOD 40 MG TABEC PO SCH (09:00)
[2024-05-05] MEDS ORDERED: POTASSIUM CHLORIDE 20 MEQ TAB CR PO SCH (09:00)
[2024-05-05] MEDS ORDERED: CILOSTAZOL 100 MG TAB PO SCH (09:00)
[2024-05-05] MEDS ORDERED: VILANTER INH SCH (09:00)
[2024-05-05] MEDS ORDERED: ASPIRIN 81 MG CHEW TAB PO SCH (09:00)
[2024-05-05] MEDS ORDERED: CLOPIDOGREL BISULFATE 75 MG TAB PO SCH (09:00)
[2024-05-05] MEDS ORDERED: UMECLIDIN INH SCH (09:00)
== END 2024-05-05 10:59 | disposition home or self-care (01) ==
LOC: ER 10:48 → ERHOLD 11:15 → MED/SURG2 13:18
PROVIDERS: ADMIT Family Medicine; ATTEND Family Medicine
DX: D50.9 Iron deficiency anemia, unspecified (principal); I13.0 Hypertensive heart and chronic kidney disease with heart failure and stage 1 through stage 4 chronic kidney disease, or unspecified chronic kidney disease; I50.9 Heart failure, unspecified; N18.30 Chronic kidney disease, stage 3 unspecified; I25.2 Old myocardial infarction; E78.5 Hyperlipidemia, unspecified; J44.9 Chronic obstructive pulmonary disease, unspecified; Z99.81 Dependence on supplemental oxygen; E03.9 Hypothyroidism, unspecified; G89.29 Other chronic pain; M54.50 Low back pain, unspecified; I73.9 Peripheral vascular disease, unspecified; Z89.611 Acquired absence of right leg above knee; I49.3 Ventricular premature depolarization; Z79.02 Long term (current) use of antithrombotics/antiplatelets; Z79.82 Long term (current) use of aspirin; Z79.899 Other long term (current) drug therapy
CPT/HCPCS: 36415 ×2; 36430; 80053; 83880; 84484; 85025 ×2; 85610; 85730; 86850; 86900; 86920; 93005; 94640 ×2; 94799 ×2; 99284; G0378 ×2; J1940 ×2; J7050; P9016

== ENCOUNTER 2024-06-15 13:18 | Observation (INO) | payer MEDICARE ==
[~2024-06-15] VITALS: Ht 157.5 cm; Wt 45.4 kg
[2024-06-15 16:11] VITALS: BP 145/52; PULSE 87; RESP 20; TEMP 98.1; O2SAT 100
[2024-06-15 16:13] VITALS: BP 145/52; PULSE 87; RESP 20; TEMP 98.1; O2SAT 100
[2024-06-15] MEDS ORDERED: CALCIUM PO (16:26)
[2024-06-15 17:13] LABS: BASOPHILS % 0.4 % (0.0-1.0); EOSINOPHILS % 0.2 % (0.0-6.0); HEMATOCRIT 24.2 % (34.2-44.1); LYMPHOCYTES # (AUTO) 0.3 (1.0-3.2); LYMPHOCYTES % 6.7 % (18.0-39.1); MEAN CORPUSCULAR HEMOGLOBIN 27.4 pg (28-32); MEAN CORPUSCULAR HGB CONC 28.5 g/dL (31-35); MONOCYTES # (AUTO) 0.1 (0.2-0.8); MONOCYTES % 1.2 % (4.4-11.3); NEUTROPHILS # (AUTO) 4.5 (2.1-6.9); NEUTROPHILS % 91.3 % (38.7-80.0); PLATELET COUNT 286 x10e3/uL (140-360); RED BLOOD COUNT 2.52 x10e6/uL (3.6-5.1); RED CELL DISTRIBUTION WIDTH 16.8 % (11.7-14.4); WHITE BLOOD COUNT 4.89 x10e3/uL (4.8-10.8)
[2024-06-15 17:18] LABS: HEMOGLOBIN 6.9 g/dL (12.0-16.0)
[2024-06-15] MEDS ORDERED: SODIUM CHLORIDE 0.9% 250ML 250 ML IV ONE (18:30)
[2024-06-15 20:00] VITALS: BP 111/90; PULSE 90; RESP 18; TEMP 98.1; O2SAT 100
[2024-06-15 21:00] VITALS: BP 111/90; PULSE 90; RESP 18; TEMP 98.1; O2SAT 100
[2024-06-15] MEDS ORDERED: SODIUM CHLORIDE 0.9% 250ML 250 ML ONE (21:46)
[2024-06-15] MEDS: METOPROLOL SUCCINATE 25 MG TAB XL PO SCH (23:45)
[2024-06-15] MEDS ORDERED: TRAZODONE HCL 50 MG TAB PO PRN (23:45)
[2024-06-15] MEDS: OMEGA 3 POLYUNSAT FATTY ACIDS 1000 MG SOFTGEL PO SCH (23:45)
[2024-06-16] VITALS (7 sets, daily range): BP systolic 106–121; BP diastolic 64–72; PULSE 76–91; RESP 16–18; TEMP 98–98.5; O2SAT 93–100
[2024-06-16] MEDS: IPRATROPIUM BROMIDE 0.02% 2.5 ML NEB INH PRN (00:14)
[2024-06-16] MEDS: FUROSEMIDE INJ 10 MG/ML 2 ML VIAL IV ONE (00:41)
[2024-06-16] MEDS: TRAMADOL HCL 50 MG TAB PO PRN (00:42)
[2024-06-16] MEDS: LEVOTHYROXINE SODIUM 100 MCG TAB PO SCH (05:13)
[2024-06-16] MEDS: ALBUTEROL SULF 0.083% NEB SOLN 3 ML NEB NEB SCH (07:10)
[2024-06-16 08:52] LABS: HEMATOCRIT 31.2 % (34.2-44.1); HEMOGLOBIN 9.5 g/dL (12.0-16.0)
[2024-06-16] MEDS: NON-FORMULARY MEDICATION (Fluticasone/Umeclidin/Vilanter (Trelegy Ellipta 100-62.5-25) 1 I INH SCH (09:00)
[2024-06-16] MEDS: POTASSIUM CHLORIDE 20 MEQ TAB CR PO SCH (09:00)
[2024-06-16] MEDS: SACUBITRIL/VALSARTAN 24MG/26MG 1 EA TAB PO SCH (10:09)
[2024-06-16] MEDS: FUROSEMIDE 40 MG TAB PO SCH (10:09)
[2024-06-16] MEDS: CILOSTAZOL 100 MG TAB PO SCH (10:09)
[2024-06-16] MEDS: CHOLECALCIFEROL 1,000 UNIT TAB PO SCH (10:10)
[2024-06-16] MEDS: OYST-CAL-D 500MG TABLET PO SCH (10:10)
[2024-06-16] MEDS: CLOPIDOGREL BISULFATE 75 MG TAB PO SCH (10:10)
[2024-06-16] MEDS: BUSPIRONE HCL 5 MG TAB PO SCH (10:10)
[2024-06-16] MEDS: ASPIRIN 81 MG CHEW TAB PO SCH (10:11)
[2024-06-16] MEDS ORDERED: SIMVASTATIN 40 MG TAB PO SCH (21:00)
[2024-06-16] MEDS ORDERED: EZETIMIBE 10 MG TAB PO SCH (21:00)
== END 2024-06-16 11:42 | disposition home or self-care (01) ==
LOC: MED/SURG 15:41
PROVIDERS: ADMIT Family Medicine; ATTEND Family Medicine
DX: D50.9 Iron deficiency anemia, unspecified (principal); I25.10 Atherosclerotic heart disease of native coronary artery without angina pectoris; Z89.611 Acquired absence of right leg above knee; Z95.5 Presence of coronary angioplasty implant and graft; I10 Essential (primary) hypertension; E78.5 Hyperlipidemia, unspecified; Z87.891 Personal history of nicotine dependence; J44.9 Chronic obstructive pulmonary disease, unspecified; E03.9 Hypothyroidism, unspecified
CPT/HCPCS: 36430; P9021; 36415; 85014; 85018; 85025; 86850; 86900; 86920; 94640; 94799; G0378; J1940; J7050; P9016